=== PATIENT | female | born 1955 | race African-American/Black ===

== ENCOUNTER → 2020-10-13 | Day surgery (SDC) | payer MEDICARE ==
[~2020-10-13] MED LIST: AMLODIPINE BESY10 MG PO; ATORVASTATIN CA20 MG PO; CLARITIN10 M2 PO; DEXTROSE 5% 250ML 250 ML IV ONE; DIPHENHYDRAMINE25 M2 PO; FENTANYL CITRATE/PF 100MCG/2 ML INJ ONE; FISH OIL 1,2001 EACH PO; LISINOPRIL10 MG PO; METOCLOPRAM5 MG/5 ML PO; MIDAZOLAM HCL 2 MG/2 ML VIAL ONE; NOVOLIN N100 UNIT/1 SQ; OMEPRAZOLE40 MG PO; OR PHACO EYE KIT ONE; PREOP PHACO EYE KIT ONE; RENA-VITE RX T1 EACH PO; VITAMIN B COMP1 EACH PO; VOTRIENT200 MG PO
[2020-10-13 12:27] LABS: BASOPHILS % 0.3 % (0.0-1.0); EOSINOPHILS # (AUTO) 0.2 (0.0-0.4); EOSINOPHILS % 1.7 % (0.0-6.0); HEMATOCRIT 33.7 % (34.2-44.1); HEMOGLOBIN 10.1 g/dL (12.0-16.0); LYMPHOCYTES # (AUTO) 1.8 (1.0-3.2); MEAN CORPUSCULAR HEMOGLOBIN 28.8 pg (28-32); MONOCYTES # (AUTO) 0.6 (0.2-0.8); MONOCYTES % 6.9 % (4.4-11.3); NEUTROPHILS # (AUTO) 6.2 (2.1-6.9); NEUTROPHILS % 70.4 % (38.7-80.0); PLATELET COUNT 219 x10e3/uL (140-360); RED BLOOD COUNT 3.51 x10e6/uL (3.6-5.1); RED CELL DISTRIBUTION WIDTH 17.5 % (11.7-14.4)
[2020-10-13 14:05] VITALS: BP 155/88
== END | disposition home or self-care (01) ==
LOC: OR 10:48
PROVIDERS: ATTEND Ophthalmology
DX: H25.11 Age-related nuclear cataract, right eye (principal); Z87.891 Personal history of nicotine dependence; Z88.6 Allergy status to analgesic agent; I25.2 Old myocardial infarction; I10 Essential (primary) hypertension; I25.10 Atherosclerotic heart disease of native coronary artery without angina pectoris; E78.5 Hyperlipidemia, unspecified; Z90.5 Acquired absence of kidney; Z85.528 Personal history of other malignant neoplasm of kidney; Z92.21 Personal history of antineoplastic chemotherapy
CPT/HCPCS: 36415; 66984; 82948; 85025; J7070; V2632; J2250; J3010

== ENCOUNTER → 2020-10-27 | Day surgery (SDC) | payer MEDICARE ==
[~2020-10-27] MED LIST changes: +DEXTROSE 5% 250 ML BAG IV ONE; -DEXTROSE 5% 250ML 250 ML IV ONE
[2020-10-27 14:40] VITALS: BP 139/70
== END | disposition home or self-care (01) ==
LOC: OR 10:07
PROVIDERS: ATTEND Ophthalmology
DX: H25.12 Age-related nuclear cataract, left eye (principal); H25.042 Posterior subcapsular polar age-related cataract, left eye; E11.9 Type 2 diabetes mellitus without complications; I10 Essential (primary) hypertension; I44.0 Atrioventricular block, first degree; Z88.6 Allergy status to analgesic agent; I25.10 Atherosclerotic heart disease of native coronary artery without angina pectoris; Z95.5 Presence of coronary angioplasty implant and graft; Z85.528 Personal history of other malignant neoplasm of kidney
CPT/HCPCS: 36415; 66984; 82948; J2250; J3010; V2632